=== PATIENT | male | born 1970 | race Caucasian/White ===

== ENCOUNTER → 2022-12-06 12:19 | Outpatient (BNVA) | payer MEDICAID, SELFPAY | PROVIDERS: Visit Provider Nurse Practitioner Family | DX: L97.929 Non-pressure chronic ulcer of unspecified part of left lower leg with unspecified severity (principal); L97.919 Non-pressure chronic ulcer of unspecified part of right lower leg with unspecified severity | CPT/HCPCS: 73590 ==

== ENCOUNTER 2022-12-15 12:58 | Outpatient (CLI) | payer MEDICAID, SELFPAY ==
--- NOTE | 2022-12-15 12:30 | USCV_ITS ---
Chavez Covarrubias Age: 52 Gender: M : 1970 Exam Date: 12/15/2022 13:30 Ordering Phys: Karine Robb NP Technologist: Exam [place] [facility] [place]: HISTORY: PROCEDURES: Bilateral duplex Venous Insufficiency study of the Deep and Superficial systems was carried out according to normal protocol with the patient in supine positon for deep system and dependent position for the superficial system. FINDINGS: The veins were found to be easily compressible with spontaneous blood flow. Non pulsatile flow pattern. No significant venous reflexes CONCLUSIONS No evidence of DVT in the above-mentioned identifiable veins. No significant venous refluxes Normal caliber and patent greater saphenous veins bilaterally Dr Goldie Wood MD [facility] (Electronically Signed) Final Date: 16 Dec 2022 09:35 S
== END 2022-12-15 12:59 | disposition home or self-care (01) ==
LOC: RAD 13:01
PROVIDERS: PCP Nurse Practitioner Family; Visit Provider Nurse Practitioner Family
DX: L98.499 Non-pressure chronic ulcer of skin of other sites with unspecified severity (principal)
CPT/HCPCS: 93970

== ENCOUNTER → 2022-12-21 16:08 | Outpatient (BNVA) | payer MEDICAID, SELFPAY | PROVIDERS: PCP Nurse Practitioner Family; Visit Provider Nurse Practitioner Family | DX: L98.499 Non-pressure chronic ulcer of skin of other sites with unspecified severity (principal) | CPT/HCPCS: 80053; 85025 ==

== ENCOUNTER 2022-12-24 11:38 | Outpatient (CLI) | payer MEDICAID, SELFPAY ==
--- NOTE | 2022-12-24 11:15 | USR_ITS ---
PROCEDURE INFORMATION: Exam: US Duplex Bilateral Lower Extremity Arteries Exam date and time: 12/24/2022 11:54 AM Age: 52 years old Clinical indication: Other: Non healing ulcers; Additional info: Non healing ulcers to bilateral lower extremities TECHNIQUE: Imaging protocol: Real-time ultrasound scan of the arteries of the bilateral lower extremities with 2-D tyler scale, color Doppler flow and spectral waveform analysis. Images documented and saved. [id number](s) are provided. COMPARISON: CR XR tibia fibula LT 2V [id number] 12/06/2022 12:45 PM FINDINGS: Right external iliac artery: The right iliac velocity measurement is 121 cm/s with triphasic overall waveforms throughout. Right common femoral artery: The systolic velocity measurement is 107 cm/s. No occlusion or significant stenosis is appreciated. Right profunda femoris artery: Not included. Right superficial femoral artery: The systolic velocity measurement is 111 cm/s. No occlusion or significant stenosis is appreciated. Right popliteal artery: The systolic velocity measurement is 63 cm/s. No occlusion or significant stenosis is appreciated. Right calf/foot arteries: The systolic velocity measurement is 67 cm/s. No occlusion or significant stenosis is appreciated. The MIREYA measurement on the right is provided of 1.0. Left external iliac artery: The left iliac arterial systolic velocity measurement is 108.6 cm/s with triphasic waveform overall throughout. Left common femoral artery: The systolic velocity measurement is 109 cm/s. No occlusion or significant stenosis is appreciated. Left profunda femoris artery: Not included. Left superficial femoral artery: The systolic velocity measurement is 73 cm/s. No occlusion or significant stenosis is appreciated. Left popliteal artery: The systolic velocity measurement is 49 cm/s. No occlusion or significant stenosis is appreciated. Left calf/foot arteries: The systolic velocity measurement is 69 cm/s. No occlusion or significant stenosis is appreciated. The MIREYA measurement on the left is provided of 1.0. Soft tissues: No subcutaneous fluid collections are appreciated.There is some subcutaneous edema demonstrated. US/CV arterial duplex [facility] [id number] IMPRESSION: There is patent overall arterial color Doppler flow demonstrated bilaterally with no velocity doubling to indicate Doppler hemodynamically significant stenosis.
== END 2022-12-24 11:39 | disposition home or self-care (01) ==
LOC: RAD 11:40
PROVIDERS: PCP Nurse Practitioner Family; Visit Provider Nurse Practitioner Family
DX: L97.929 Non-pressure chronic ulcer of unspecified part of left lower leg with unspecified severity (principal); L97.919 Non-pressure chronic ulcer of unspecified part of right lower leg with unspecified severity
CPT/HCPCS: 93925

== ENCOUNTER → 2022-12-27 15:45 | Outpatient (BNVA) | payer MEDICAID, SELFPAY | PROVIDERS: PCP Nurse Practitioner Family; Visit Provider Nurse Practitioner Family | DX: L98.499 Non-pressure chronic ulcer of skin of other sites with unspecified severity (principal) | CPT/HCPCS: 87070; 87075; 87077; 87176; 87186; 87205 ==

== ENCOUNTER → 2022-12-28 12:00 | Outpatient (BNVA) | payer MEDICAID, SELFPAY | PROVIDERS: PCP Nurse Practitioner Family; Visit Provider Nurse Practitioner Family | DX: L97.929 Non-pressure chronic ulcer of unspecified part of left lower leg with unspecified severity (principal); L97.919 Non-pressure chronic ulcer of unspecified part of right lower leg with unspecified severity; L98.499 Non-pressure chronic ulcer of skin of other sites with unspecified severity; Z51.89 Encounter for other specified aftercare | CPT/HCPCS: 87070; 87077; 87176; 87186; 87205 ==

== ENCOUNTER 2023-10-04 17:41 | Outpatient (CLI) | payer MEDICAID, SELFPAY ==
--- NOTE | 2023-10-04 17:00 | CTR_ITS ---
PROCEDURE INFORMATION: Exam: CT Abdomen And Pelvis With Contrast Exam date and time: 10/04/2023 6:07 PM Age: 52 years old Clinical indication: Abdominal pain; Generalized; Additional info: Abdominal hernia abdominal pain, iv TECHNIQUE: Imaging protocol: Computed tomography of the abdomen and pelvis with contrast. Radiation optimization: All CT scans at this facility use at least one of these dose optimization techniques: automated exposure control; mA and/or kV adjustment per patient size (includes targeted exams where dose is matched to clinical indication); or iterative reconstruction. Contrast material: OMNI 350; Contrast volume: 100 ml; Contrast route: INTRAVENOUS (IV); COMPARISON: No relevant prior studies available. RADIATION DOSE METRICS: Total DLP (mGy-cm): 1224.93 FINDINGS: Liver: Normal. No mass. Gallbladder and bile ducts: Contracted gallbladder, probably physiologic. Pancreas: Normal. No ductal dilation. Spleen: Normal. No splenomegaly. Adrenal glands: Normal. No mass. Kidneys and ureters: Normal. No hydronephrosis. Stomach and bowel: Unremarkable. No obstruction. No mucosal thickening. Appendix: No evidence of appendicitis. Intraperitoneal space: Unremarkable. No free air. No significant fluid collection. Vasculature: Unremarkable. No abdominal aortic aneurysm. Lymph nodes: Unremarkable. No enlarged lymph nodes. Urinary bladder: Unremarkable as visualized. Reproductive: Unremarkable as visualized. Bones/joints: Unremarkable. No acute fracture. Soft tissues: Extremely large ventral hernia containing stomach, small bowel, and colon without evidence of obstruction. Inferior to this is a smaller but still moderately large hernia containing only fat. CT/CT abdomen pelvis w con* [id number] IMPRESSION: Two anterior abdominal wall hernias, 1 containing multiple loops of bowel, 1 containing only fat.
[2023-10-04] MEDS: iohexol 350 mg/mL 500 mL Btl (per mL) IV (18:12)
== END 2023-10-04 17:42 | disposition home or self-care (01) ==
LOC: RAD 17:41
PROVIDERS: PCP Nurse Practitioner Family; Visit Provider Surgery
DX: K43.9 Ventral hernia without obstruction or gangrene (principal)
CPT/HCPCS: 74177; Q9967